=== PATIENT | female | born 1990 | race Two or more races ===

== ENCOUNTER 2017-09-14 20:05 | Emergency (ER) | payer MEDICAID ==
[~2017-09-14] VITALS: Ht 172.7 cm; Wt 100.0 kg
[2017-09-15] MEDS ORDERED: MORPHINE SULFATE 2 MG/ML CPJ (NOT FOR IM USE) IV ONE
[2017-09-15] MEDS ORDERED: ONDANSETRON 4MG ODT PO ONE
[2017-09-15] MEDS ORDERED: ACETAMINOPHEN 500MG TABLET PO ONE (00:30)
[2017-09-15] MEDS ORDERED: MORPHINE SULFATE 4 MG/ML CPJ (NOT FOR IM USE) IV SCH (00:30)
[2017-09-15 01:15] VITALS: BP 115/79
[2017-09-15] MEDS ORDERED: DIVALPROEX SODIUM 250MG ER TABLET PO ONE (01:45)
[2017-09-15] MEDS ORDERED: VALACYCLOVIR HCL 500MG TABLET PO SCH (01:45)
[2017-09-15] MEDS ORDERED: QUETIAPINE FUMARATE 50MG TABLET PO SCH (01:45)
[2017-09-15 02:23] LABS: CHLORIDE 106 mEq/L (98-107)
== END 2017-09-15 02:00 | disposition left against medical advice (07) ==
LOC: ER 20:05
DX: S09.8XXA Other specified injuries of head, initial encounter (principal); M25.552 Pain in left hip; M54.2 Cervicalgia; M25.562 Pain in left knee; M25.561 Pain in right knee; F17.200 Nicotine dependence, unspecified, uncomplicated; F31.9 Bipolar disorder, unspecified; V19.9XXA Pedal cyclist (driver) (passenger) injured in unspecified traffic accident, initial encounter; Y93.55 Activity, bike riding; Y92.89 Other specified places as the place of occurrence of the external cause; Y99.8 Other external cause status; Z88.0 Allergy status to penicillin; Z88.2 Allergy status to sulfonamides
CPT/HCPCS: 36415; 71045; 80048; 81025; 96374; 99285; J2270; Q0162